=== PATIENT | male | born 1970 | race Caucasian/White ===

== ENCOUNTER 2024-05-24 06:40 | Day surgery (SDC) | payer OTHER, SELFPAY ==
--- NOTE | 2024-05-23 13:06 | ESHP_ITS ---
RE: THALIA DUNN : 1970 DATE OF ADMISSION: 05/23/2024 HISTORY OF PRESENT ILLNESS: Thalia Dunn is a gentleman from [facility]. He is an inmate. The patient has a history of prostate cancer. He has some difficulty in urinating, nocturia three times, slow urinary stream. He has to push the urine out. He had a biopsy of the prostate done in [place], which was reported to show prostate grade 3+3 = 6. This was done in [place]. He had a history of [place] fever in 2008 and he is on fluconazole. There is no history of diabetes mellitus. The patient's PSA has been going up and it is now 9.2. It was 6.1 before, now it is 9.2, so now the patient is scheduled to have cystoscopy and transrectal prostatic ultrasound with ultrasound-guided prostatic needle biopsy to see if his prostate cancer grade has been higher. Planned procedure, risks and complications have been discussed with the patient. The patient has understood them and agreed to proceed. He is on tamsulosin 0.4 mg twice a day. The patient wishes to have radiation treatment for his cancer of the prostate and I have requested [facility] to schedule his appointment with radiation doctor around that location. PHYSICAL EXAMINATION: HEENT: Normal. NECK: Supple. LUNGS: Clear. CARDIOVASCULAR: Heart sounds are normal. ABDOMEN: Soft without any organomegaly. No guarding. No rigidity. EXTREMITIES: Normal. GENITOURINARY: Phallus is normal. Testes are down in the scrotum. RECTAL: Revealed moderately enlarged prostate without any hard nodules. IMPRESSION: History of prostate cancer. PSA was 6.1 before, now it is 9.2. The prostate cancer was grade 3+3 = 6. The patient is now having cystoscopy and transrectal prostatic ultrasound and biopsy to see if the prostate cancer has gotten higher with a [place] grade. DT: 11:11:26 TT: 12:49:00 Ref: [id number] - TID: [id number]
[2024-05-23 14:43] VITALS: BMI 22.7
[2024-05-24 07:10] VITALS: BP 106/60; PULSE 63; RESP 20; TEMP 36.3; O2SAT 100; BMI 21.8
[2024-05-24 09:09] VITALS: BP 110/74; PULSE 67; RESP 13; TEMP 36.5; O2SAT 100
--- NOTE | 2024-05-24 09:09 | SUR.PHASEII ---
0909 [facility], on [facility] 4L via oxy mask, breathing unlabored, vital signs stable, denies pain, lung sounds clear upon auscultation, bilateral radial pulses present when palpated, patient has metal bilateral ankle restraints and is accompanied by an officer, report received from Trish TEMPLE and Vinicio MURILLO
[2024-05-24 09:14] VITALS: BP 114/73; PULSE 72; RESP 17; O2SAT 100
[2024-05-24 09:19] VITALS: BP 102/70; PULSE 64; RESP 13; O2SAT 100
[2024-05-24 09:24] VITALS: BP 109/74; PULSE 66; RESP 13; O2SAT 100
[2024-05-24 09:39] VITALS: BP 116/71; PULSE 63; RESP 15; TEMP 36.7; O2SAT 100
--- NOTE | 2024-05-24 09:43 | SUR.PHASEII ---
0943 Patient meets discharge criteria from recovery, awake and alert, breathing unlabored, vital signs stable, denies pain, patient voided in urinal prior to discharge, urine is dark pink, patient drinking water; denies nausea, assisted with dressing into his clothing by officers, patient has bilateral metal wrist and ankle restraints in place and accompanied by two officers, discharge instructions given to patient and officer, officer signed discharge instructions. Patient given all his belongings prior to discharge, transported via wheelchair and left in a private vehicle.
--- NOTE | 2024-05-24 17:58 | ESOP_ITS ---
RE: THALIA DUNN : 1970 DATE OF OPERATION: 05/24/2024 PREOPERATIVE DIAGNOSES: Rising PSA, history of adenocarcinoma of prostate, prostatism and prostatic obstruction. POSTOPERATIVE DIAGNOSES: Rising PSA, history of adenocarcinoma of prostate, prostatism and prostatic obstruction. PROCEDURE PERFORMED: Cystoscopy and transrectal prostatic ultrasound with ultrasound-guided prostatic needle biopsy. ANESTHESIA: Monitored anesthesia. INDICATION: The patient is a 53-year-old gentleman from [facility]. He is an inmate. He has a history of prostate cancer, Kun grade 3 + 3 = 6. His PSA has been rising. It was 6.1. Now it is PSA of 9.2. He has nocturia x3 with slowing urinary stream. He is now scheduled to have cystoscopy and transrectal prostatic ultrasound with ultrasound-guided prostatic needle biopsy. This is done to see if his prostate cancer is getting higher in the grade. DESCRIPTION OF PROCEDURE: After the patient was brought to the operating table under adequate monitored anesthesia and dorsal lithotomy position, parts were prepped and draped in the usual fashion. Cystoscopy was then carried out in a standard fashion, which revealed adequate urethral meatus, normal-appearing urethra. Prostatic urethra is moderately enlarged bilobed prostate. Residual urine 2 ounces yellow and clear and was sent for culture and sensitivity examination. There are no intravesical stones or tumors. Ureteral orifices were found to be normal in position and appearance. The scope was withdrawn. The urethra was dilated. The patient was then turned in left lateral position. Transrectal prostatic ultrasound was carried out. Biopsies were obtained from both lobes using ultrasound guidance. Prostatic volume was measured at 34.8 cubic cm in all about 9 biopsies were obtained from both lobes. Plan, we will await for biopsy report. The patient would like to have radiation treatment for his prostate cancer and I would suggest that he should have a consult with the radiation therapist in your area. I will see him in about 3 weeks for the biopsy report. The patient should continue his Cipro 500 mg twice a day for 3 days and he should have Tylenol for pain after this procedure. cc: [facility] DT: 10:47:14 TT: 17:58:00 Ref: [id number] - TID: [id number]
== END 2024-05-24 09:43 | disposition home or self-care (01) ==
PROVIDERS: Referring Provider Surgery; Visit Provider Surgery
PROC: (CPT 55700; principal; 2024-05-24 11:15)
PROC: 0TJB8ZZ Inspection of Bladder, Via Natural or Artificial Opening Endoscopic (ICD-10-PCS; CPT 52000; 2024-05-24 11:15)
DX: R97.21 Rising PSA following treatment for malignant neoplasm of prostate (principal); N40.1 Benign prostatic hyperplasia with lower urinary tract symptoms; Z85.46 Personal history of malignant neoplasm of prostate; R39.198 Other difficulties with micturition
CPT/HCPCS: 55700; 76942; 87086; A4217; A4649; J0694; J1100; J2250; J2405; J2704; J3010